=== PATIENT | male | born 1990 | race Caucasian/White ===

== ENCOUNTER 2019-11-21 19:14 | Emergency (ER) | payer OTHER ==
[~2019-11-21] VITALS: Ht 170.2 cm; Wt 74.8 kg
[2019-11-21 19:21] VITALS: Ht 170.2 cm; Wt 74.8 kg
[2019-11-21 22:59] VITALS: BP 128/73
== END 2019-11-21 22:59 | disposition home or self-care (01) ==
LOC: ED 19:14
DX: J06.9 Acute upper respiratory infection, unspecified (principal)

== ENCOUNTER 2020-04-02 08:08 | Emergency (ER) | payer OTHER ==
[~2020-04-02] VITALS: Ht 170.2 cm; Wt 73.5 kg
[2020-04-02 08:15] VITALS: Ht 170.2 cm; Wt 73.5 kg
[2020-04-02 09:42] LABS: BASOPHIL % 0.5 % (0-2); PLATELET COUNT 206 x10^3mcL (130-400); RED CELL DISTRIBUTION WIDTH 12.5 % (11.5-14.5)
[2020-04-02 10:49] LABS: microscopic required? YES; urine erythrocyte 3+ (NEGATIVE)
[2020-04-02 10:50] LABS: CARBON DIOXIDE 27.6 mmol/L (21-32); CHLORIDE SERUM 103 mmol/L (98-107); CREATININE SERUM 0.9 mg/dL (0.7-1.3); GFR1 > 60 mL/min; GLUCOSE SERUM 97 mg/dL (74-106); POTASSIUM SERUM 3.7 mmol/L (3.5-5.1); SODIUM SERUM 141 mmol/L (136-145)
[2020-04-02 10:54] LABS: ALKALINE PHOSPHATASE 55 U/L (46-116); ALT/SGPT 24 U/L (16-63); AST/SGOT 18 U/L (15-37); BILIRUBIN TOTAL 0.65 mg/dL (0.20-1.00); LIPASE 126 IU/L (73-393)
[2020-04-02 12:38] VITALS: BP 122/78
== END 2020-04-02 12:38 | disposition home or self-care (01) ==
LOC: ED 08:08
PROVIDERS: Emergency Medicine
DX: N13.2 Hydronephrosis with renal and ureteral calculous obstruction (principal)
CPT/HCPCS: 36415